=== PATIENT | female | born 1995 | race Caucasian/White ===

== ENCOUNTER → 2016-12-27 | Outpatient (CLI) | payer BC, OTHER | LOC: RAD 11:58 | PROVIDERS: ATTEND Physician Assistant | DX: R51 Headache (principal) | CPT/HCPCS: 70450 ==

== ENCOUNTER 2017-01-04 10:56 | Emergency (ER) | payer BC, OTHER ==
[~2017-01-04] VITALS: Ht 175.3 cm; Wt 124.0 kg
[2017-01-04] MEDS ORDERED: GI COCKTAIL 55 ML UDC PO ONE (11:50)
[2017-01-04] MEDS ORDERED: ONDANSETRON 2 MG/ML (Z0FRAN) 2 ML VIAL IV ONE (11:50)
[2017-01-04] MEDS ORDERED: SODIUM CHLORIDE FLUSH 3 ML SYR IV PRN (11:50)
[2017-01-04] MEDS ORDERED: SODIUM CHLORIDE FLUSH 10 ML SYR IV PRN (11:50)
[2017-01-04 12:00] LABS: BILIRUBIN,URINE Negative (Negative); CLARITY,URINE Clear; COLOR,URINE Yellow; GLUCOSE, URINE (UA) Negative (Negative); LEUKOCYTE ESTERASE ,URINE Negative (Negative); UROBILINOGEN,URINE 0.2 mg/dL (0.2-1.0)
[2017-01-04 12:12] LABS: BASOPHILS % (AUTO) 1 % (0-2); EOSINOPHILS # (AUTO) 0.2 10^3uL; EOSINOPHILS % (AUTO) 2 % (0-4); LYMPHOCYTES # (AUTO) 3.3 X10^3; MONOCYTES # (AUTO) 1.3 X10^3; MONOCYTES % (AUTO) 12 % (3-11); NEUTROPHILS # (AUTO) 5.4 X10^3; NEUTROPHILS % (AUTO) 53 % (51-67); WHITE BLOOD COUNT 10.25 10^3uL (4.0-11.0)
[2017-01-04 12:15] LABS: MEAN CORPUSCULAR HEMOGLOBIN 26.7 PG (26.0-34.0); MEAN CORPUSCULAR VOLUME 76 FL (80-100); PLATELET COUNT 653 10^3uL (150-450)
[2017-01-04 12:24] LABS: ALBUMIN 4.3 g/dL (3.4-5.0); CALCULATED IONIZED CALCIUM 3.7 mg/dL (3.8-4.6)
[2017-01-04] MEDS ORDERED: MAG HYDROX/AL HYDROX/SIMETH 400-400-40/5 ML (MAG-AL PLUS XS) 30 ML UDC ONE (12:32)
[2017-01-04] MEDS ORDERED: LIDOCAINE 2% VISCOUS 20ML UDC PO ONE (12:32)
[2017-01-04] MEDS ORDERED: BELLADONNA/PHENOBARBITAL ELIXIR (DONNATAL) 10 ML UDC ONE (12:32)
[2017-01-04] MEDS ORDERED: FAMOTIDINE IV 20 MG in SODIUM CHLORIDE VIAL (PF) 10 ML IV ONE (13:10)
[2017-01-04] MEDS ORDERED: PANTOPRAZOLE IV 40 MG in SODIUM CHLORIDE FLUSH 10 ML IV ONE (13:10)
[2017-01-04 14:15] VITALS: BP 123/76
== END 2017-01-04 14:17 | disposition home or self-care (01) ==
LOC: ED 10:58
DX: K29.70 Gastritis, unspecified, without bleeding (principal); E86.0 Dehydration
CPT/HCPCS: 36415; 74022; 80053; 81003; 82150; 83690; 84703; 85025; 86140; 86308; 96361; 96374; 96375; 99284; C9113; J2405; J3490; J7030; J7050; 99283

== ENCOUNTER → 2017-01-08 | Outpatient (CLI) | payer BC, OTHER ==
[2017-01-08 13:21] LABS: BASOPHILS % (AUTO) 1 % (0-2); EOSINOPHILS # (AUTO) 0.1 10^3uL; EOSINOPHILS % (AUTO) 2 % (0-4); LYMPHOCYTES # (AUTO) 1.4 X10^3; MEAN PLATELET VOLUME 10.6 FL (6.0-9.5); MONOCYTES # (AUTO) 0.2 X10^3; MONOCYTES % (AUTO) 6 % (3-11); NEUTROPHILS # (AUTO) 1.6 X10^3; NEUTROPHILS % (AUTO) 49 % (51-67); PLATELET COUNT 462 10^3uL (150-450); WHITE BLOOD COUNT 3.25 10^3uL (4.0-11.0)
[2017-01-08 13:41] LABS: ALBUMIN 4.3 g/dL (3.4-5.0); ANION GAP 19.7 MEQ/L (3-15); TOTAL PROTEIN 7.8 g/dL (6.4-8.5)
[2017-01-08 13:44] LABS: MEAN CORPUSCULAR HEMOGLOBIN 26.9 PG (26.0-34.0); MEAN CORPUSCULAR HGB CONC 35.9 g/dL (31.0-37.0); MEAN CORPUSCULAR VOLUME 75 FL (80-100)
[2017-01-08 17:24] LABS: IRON 51 ug/dL (50-170); UNBOUND IRON CONTENT 359 ug/dl (126-382)
[2017-01-08 17:42] LABS: CORTISOL BASELINE 5 ug/dL (3-20)
== END ==
LOC: LAB 12:52
PROVIDERS: ATTEND Internal Medicine Hematology & Oncology
DX: D59.9 Acquired hemolytic anemia, unspecified (principal)
CPT/HCPCS: 36415; 80053; 82533; 82728; 83010; 83540; 83550; 85025

== ENCOUNTER → 2017-01-10 | Outpatient (CLI) | payer BC, OTHER | LOC: RAD 08:22 | PROVIDERS: ATTEND Internal Medicine Hematology & Oncology | DX: R10.9 Unspecified abdominal pain (principal); D59.9 Acquired hemolytic anemia, unspecified | CPT/HCPCS: 74178; Q9967 ==

== ENCOUNTER → 2017-03-18 | Outpatient (CLI) | payer BC, OTHER ==
[~2017-03-18] MED LIST: AC500T PO; BUPR300T43 PO; CPR500T PO; DOCU-243 PO; HYDR-3754 PO; IBUP-1772 PO; IBUP200C11 PO; METH500T35 PO; METR500T17 PO; Metronidazole PO; NF-TORA10 PO; ONDA4TAB8 PO; ONDAN4ODT PO; OXYC1TAB8 PO; OXYC1TAB87 PO; PENI500T PO; PREN-46 PO; SCOP1PAT10 TD; SUCR1TAB29 PO; TRAM-25 PO; TRM50T PO
[2017-03-18 13:43] LABS: ALBUMIN 4.6 g/dL (3.4-5.0); TOTAL PROTEIN 8.7 g/dL (6.4-8.5)
== END ==
LOC: LAB 13:17
PROVIDERS: ATTEND Physician Assistant Medical
DX: R74.8 Abnormal levels of other serum enzymes (principal)
CPT/HCPCS: 36415; 80076